=== PATIENT | female | born 1970 | race Caucasian/White ===

== ENCOUNTER 2023-08-07 09:40 | Emergency (ER) | payer OTHER ==
[2023-08-07 09:56] VITALS: BP 124/63; PULSE 85; RESP 18; TEMP 97.6; BMI 28.5
[2023-08-07] MEDS ORDERED: METOCLOPRAMIDE HCL INJECTION 10 MG/2 ML VIAL IVPUSH ONE (10:38)
[2023-08-07] MEDS ORDERED: ACETAMINOPHEN 1000 MG/100 ML BAG IVPB ONE (10:39)
[2023-08-07] MEDS ORDERED: SODIUM CHLORIDE 0.9% 500 ML INFUS.BAG IV ONE (10:39)
== END 2023-08-07 10:45 | disposition left against medical advice (07) ==
LOC: JER 09:40
DX: R53.1 Weakness (principal); R07.9 Chest pain, unspecified; R50.9 Fever, unspecified; R51.9 Headache, unspecified; Z53.21 Procedure and treatment not carried out due to patient leaving prior to being seen by health care provider
CPT/HCPCS: 93005; 93010; 99283-25